=== PATIENT | female | born 2000 | race Caucasian/White ===

== ENCOUNTER 2022-07-01 00:41 | Emergency (ER) | payer BC ==
[~2022-07-01] VITALS: Ht 170.2 cm; Wt 68.9 kg
[2022-07-01] MEDS ORDERED: HALOPERIDOL LACTATE INJ 5 MG/ML VIAL ONE (01:14)
--- NOTE | 2022-07-01 01:18 | NUR ---
LUIS F FROM [employer] [facility] C/O ETOH. PT AWAKE AND RESPONSIVE. APPEARS ETOH INTOXICATED. TOLERATING R/A WELL WITH NO RESP DISTRESS. SAFETY MEASURES IN PLACE. CONNECTED PT TO POX AND MONTIOR.
[2022-07-01] MEDS: HALOPERIDOL LACTATE INJ 5 MG/ML VIAL IM ONE (01:21)
[2022-07-01] MEDS ORDERED: LORAZEPAM INJ 2 MG/ML VIAL ONE (01:28)
[2022-07-01] MEDS: LORAZEPAM INJ 2 MG/ML VIAL IM ONE (01:35)
--- NOTE | 2022-07-01 07:05 | NUR ---
PT SLEPT WELL THROUGHOUT NIGHT. VSS. RESP EVEN AND NONLABORED. SAFETY MEASURES IN PLACE.
--- NOTE | 2022-07-01 14:13 | NUR ---
Patient discharged to home in stable condition. Written and verbal after care instructions given. Patient verbalizes understanding of instruction. she will wait for her friend to pick her up from the ER.
[2022-07-01 14:14] VITALS: BP 110/62
== END 2022-07-01 14:15 | disposition home or self-care (01) ==
LOC: ER 00:45
DX: F10.129 Alcohol abuse with intoxication, unspecified (principal); Z60.2 Problems related to living alone; Y90.9 Presence of alcohol in blood, level not specified
CPT/HCPCS: 99284; 96372 ×2; 82962; J2060; J1630